=== PATIENT | female | born 1945 | race Caucasian/White ===

== ENCOUNTER 2017-12-13 08:40 | Outpatient (CLI) | payer MEDICARE, OTHER ==
[2017-12-13 09:40] LABS: eGFR (African) > 60; eGFR (Non-African) > 60
== END 2017-12-13 08:42 ==
LOC: LAB 08:40
PROVIDERS: ATTEND Family Medicine
DX: I10 Essential (primary) hypertension (principal)
CPT/HCPCS: 36415; 80053; 80061